=== PATIENT | female | born 1975 | race Caucasian/White ===

== ENCOUNTER 2021-12-03 10:36 | Outpatient (CLI) | payer BC | END 2021-12-03 10:37 | disposition home or self-care (01) | LOC: CSHLAB 10:36 | PROVIDERS: ATTEND Internal Medicine Gastroenterology | DX: Z20.822 Contact with and (suspected) exposure to COVID-19 (principal); Z12.11 Encounter for screening for malignant neoplasm of colon | CPT/HCPCS: U0003; U0005 ==

== ENCOUNTER 2021-12-08 05:50 | Day surgery (SDC) | payer BC ==
[2021-12-04 14:52] VITALS: BMI 21.4
[2021-12-08] MEDS ORDERED: Lidocaine 1% MPF 2 ML VIAL ONE (06:58)
[2021-12-08 07:04] LABS: BHCG - Serum Negative (NEGATIVE); Pregs Control Background? CLEAR/WHITE (CLR/WHITE); Pregs Control Bar Appear? YES (CONTROL BAR)
[2021-12-08] MEDS ORDERED: PROPOFOL 40 ML ONE (07:13)
[2021-12-08] MEDS ORDERED: Lidocaine 1% PF 5 ML VIAL ONE (07:15)
== END 2021-12-08 08:31 | disposition home or self-care (01) ==
LOC: CSHSDC 05:50
PROVIDERS: ATTEND Internal Medicine Gastroenterology
PROC: 0DJD8ZZ Inspection of Lower Intestinal Tract, Via Natural or Artificial Opening Endoscopic (ICD-10-PCS; principal; 2021-12-08)
DX: K64.9 Unspecified hemorrhoids (principal); J30.2 Other seasonal allergic rhinitis; K58.0 Irritable bowel syndrome with diarrhea; Z79.899 Other long term (current) drug therapy
CPT/HCPCS: 84703; J2704

== ENCOUNTER 2024-01-17 10:58 | Outpatient (CLI) | payer BC | END 2024-01-17 10:59 | disposition home or self-care (01) | LOC: CSHMAMMO 10:58 | PROVIDERS: ATTEND Family Medicine | DX: Z12.31 Encounter for screening mammogram for malignant neoplasm of breast (principal) | CPT/HCPCS: 77063; 77067 ==

== ENCOUNTER 2024-06-02 14:57 | Outpatient (CLI) | payer BC | END 2024-06-02 14:58 | disposition home or self-care (01) | LOC: CSHCT 14:57 | PROVIDERS: ATTEND Otolaryngology Plastic Surgery within the Head & Neck | DX: H72.92 Unspecified perforation of tympanic membrane, left ear (principal); H74.8X2 Other specified disorders of left middle ear and mastoid | CPT/HCPCS: 70480 ==